=== PATIENT | female | born 1955 | race Hispanic/Latino ===

== ENCOUNTER 2017-08-18 08:51 | Outpatient (CLI) | payer MEDICARE ==
--- NOTE | 2017-08-18 10:35 | XRay Report ---
Left knee: Knee pain. Standing views demonstrate mild periarticular spurs involving the medial femoral condyle however with this exception the bone and soft tissue structures appear unremarkable. There is normal alignment of the joint with no effusion and no swelling. Impression: Mild medial condyle spurring.
== END 2017-08-18 08:52 | disposition home or self-care (01) ==
LOC: SPVIMAG 08:51
PROVIDERS: ATTEND Orthopaedic Surgery
DX: M25.862 Other specified joint disorders, left knee (principal)